=== PATIENT | female | born 1995 | race Caucasian/White ===

== ENCOUNTER → 2020-06-05 | Outpatient (CLI) | payer OTHER ==
[~2020-06-05] MED LIST: KAITLIB FE CHE1 EACH PO; OXYCODONE-ACET1 EACH PO; PERCOCET PO; PROMS25 WY RECTAL
== END ==
LOC: LAB 08:00
PROVIDERS: ATTEND Anesthesiology
DX: Z01.812 Encounter for preprocedural laboratory examination (principal); Z11.59 Encounter for screening for other viral diseases

== ENCOUNTER 2020-06-14 21:53 | Observation (INO) | payer OTHER ==
[~2020-06-14] VITALS: Ht 162.6 cm; Wt 61.2 kg
[2020-06-14 21:56] VITALS: BP 141/88
[2020-06-14] MEDS ORDERED: KAITLIB FE CHE1 EACH PO (22:02)
[2020-06-14] MEDS ORDERED: OXYCODONE-ACET1 EACH PO (22:02)
[2020-06-14 22:37] LABS: ABSOLUTE NEUTROPHILS 9.6 thou/uL (1.4-8.2); BASOPHILS 0.4 % (0.0-2.0); EOSINOPHILS 0.4 % (0.0-3.0); HEMATOCRIT 39.8 % (37.0-47.0); HEMOGLOBIN 13.6 gm/dL (12.0-15.0); LYMPHOCYTES 11.5 % (24.0-44.0); MCH 30.4 pg (26.0-34.0); MCHC 34.2 g/dL (28.0-37.0); MCV 88.9 fL (80.0-100.0); PLATELET COUNT 302 thou/uL (150-400); POLYS 79.7 % (36.0-66.0); RBC 4.48 mil/uL (4.20-5.00); RDW 12.9 % (10.5-14.5); WBC 12.1 thou/uL (4.0-11.0)
[2020-06-14 22:51] LABS: PROTIME 10.3 Seconds (9.3-11.4)
[2020-06-14] MEDS ORDERED: PROMS25 WY RECTAL (23:11)
[2020-06-14] MEDS ORDERED: PERCOCET PO (23:12)
[2020-06-15 01:57] VITALS: BP 131/81
--- NOTE | 2020-06-15 02:41 | NUR ---
PT TO UNIT AROUND 0100. PT IS A&OX4, UP AD HEATHER. THIS NURSE WALKED WITH HER TO THE BATHROOM THE FIRST TIME AND PT WAS STEADY ON FEET. IV MORPHINE GIVEN FOR PAIN. FLUIDS INFUSING PER ORDER. VSS. ASSESSMENT COMPLETED. TOLERATING LIQUIDS WELL. NO REPORTS OF BLEEDING, BACK OF THE THROAT SHOWS POSITIVE SIGNS OF HEALING. WILL CONTINUE TO MONITOR THROUGHOUT THE NIGHT. PT IS JUST OBSERVATION STATUS AND PLANS TO GO HOME IN AM.
[2020-06-15 03:40] VITALS: BP 133/67
[2020-06-15 05:56] LABS: HEMOGLOBIN 12.8 gm/dL (12.0-15.0); MCH 30.2 pg (26.0-34.0); MCHC 33.8 g/dL (28.0-37.0); MCV 89.1 fL (80.0-100.0); RBC 4.26 mil/uL (4.20-5.00); RDW 12.7 % (10.5-14.5); WBC 11.3 thou/uL (4.0-11.0)
[2020-06-15 07:56] VITALS: BP 116/64
--- NOTE | 2020-06-15 09:53 | NUR ---
PT IS AOX4, VSS, PAIN CONTROLLED WITH IV MORPHINE. PT RECEIVED IV ANTIBITIC. NURSE CALLED DR. AMBROCIO AND WAS TOLD TO DISCHARGE PT. SHE WAS ON OBSERVATION STATUS ONLY. PT VERBALIZED UNDERSTANDING AND WILL FOLLOW UP WITH DR. AMBROCIO SCHEDULED. MOM WILL TRANSPORT PT HOME BY CAR.
--- NOTE | 2020-06-15 13:15 | H ---
[facility] [place] [address] HISTORY AND PHYSICAL Name: ADORE ELLIS Room #: 441-P [facility].Bhupendra#: [id number] Admission: 06/14/20 Attend Phys: Win Galindo MD Discharge: 06/15/20 Date of : 89 Report #: [id number] THIS REPORT FOR: cc: PAMELA - No family physician/PCP FAM - No family physician/PCP Win Galindo MD ~ CC: [facility] physician/PCP Win Carr M.D. DATE OF SERVICE: 06/14/2020 SURGEON: Win Galindo MD REASON FOR CONSULTATION: Post-tonsillectomy hemorrhage. HISTORY OF PRESENT ILLNESS: The patient is a 24-year-old female admitted via the Emergency Department tonight after the onset of bleeding beginning around 7:00 this evening. The patient's father had called me at around 07:37 and I had instructed them on the use of cold water lavages to the pharynx and told them to proceed to the Emergency Room if this continued to bleed. He called back at 9:28 p.m., stating it was still bleeding and I directed them to the Emergency Department. The patient's history is significant for tonsillectomy done by my partner, Dr. Carr, on 06/08/2020 at [facility]. The patient seen in the Emergency Department with a large clot still oozing in the right tonsillar fossa. PAST MEDICAL HISTORY: Significant for chronic tonsillitis, status post tonsillectomy and adenoidectomy 06/08/2020, third molar extraction. She is otherwise healthy, vigorous 24-year-old. MEDICATIONS: Include oxycodone and control pills. ALLERGIES: None. REVIEW OF SYSTEMS: The patient is complaining of pain in her throat in addition to feeling somewhat nauseated from the bleeding. Other 12-point review of systems is negative. SOCIAL HISTORY: She is here with her mother. She is a nonsmoker, drinks alcohol occasionally. PHYSICAL EXAMINATION: GENERAL: Shows a well-developed 24-year-old seen in the Emergency Department, respiration of 16, pulse of 97. VITAL SIGNS: Blood pressure 141/88, pulse of 100. [facility] [address] [place] [address] HISTORY AND PHYSICAL Name: ADORE ELLIS [facility] [id number] Admission: 06/14/20 Attend Phys: Win Galindo MD Discharge: 06/15/20 Date of : [birth year] Report #: [id number] HEENT: She is normocephalic. Pupils are equal, round, reactive to light. Otologic exam normal tympanic membrane. Nasal exam, deviated septum is minimal to the right. Oral cavity shows a large clot in the right tonsillar fossa with some active oozing. NECK: Supple. Trachea is in the midline. NEUROLOGIC: Cranial nerves 2-12 are otherwise intact. Motor, sensory and cerebellar exams normal. LUNGS: Clear. CBC shows a white count of 12,100 with a hemoglobin of 13.6. PT and PTT are pending. ASSESSMENT: Post-tonsillectomy hemorrhage postoperative day #5 status post tonsillectomy by my partner, Dr. Carr, on 06/08/2020. PLAN: I will plan to return the patient to the operating room for control of post-tonsillectomy hemorrhage. I have discussed the planned procedure, indications, alternatives, benefits and potential risks with the patient and her mother who understands the need to proceed. <ELECTRONICALLY SIGNED> By: Win Galindo MD 06/15/20 1315 [id number] iWn Galindo MD /nt
--- NOTE | 2020-06-15 13:15 | O ---
[facility] [place] [address] OPERATIVE REPORT Name: ADORE ELLIS Room #: 441-P [facility] Josue Lowe#: [id number] Admission: 06/14/20 Attend Phys: Win Galindo MD Discharge: 06/15/20 Date of : [birth year] Report #: [id number] THIS REPORT FOR: cc: PAMELA - No family physician/PCP FAM - No family physician/PCP Win Galindo MD ~ CC: [facility] physician/PCP Win Carr DATE OF SERVICE: 06/14/2020 SURGEON: Win Galindo M.D. PREOPERATIVE DIAGNOSIS: Post-tonsillectomy hemorrhage, postoperative day #5. POSTOPERATIVE DIAGNOSIS: Post-tonsillectomy hemorrhage, postoperative day #5. OPERATION PERFORMED: Control post-tonsillectomy hemorrhage with secondary surgical intervention. INDICATIONS: The patient is a 24-year-old female, postoperative day #5 after tonsillectomy and adenoidectomy by my partner, Dr. Carr, on 06/08 at [facility]. The patient began bleeding tonight and then this was nonresponsive to ice water lavages. In light of the above, she was recommended to proceed to the Emergency Room. This confirmed a large clot with active bleeding in the right fossa. The patient was brought to the operating room for control. DESCRIPTION OF PROCEDURE: The patient was brought to the operating room and placed supine on the operating table. After adequate general anesthesia was achieved via endotracheal intubation, she was turned 90 degrees. A shoulder roll was placed and neck was extended. She was then prepped and draped for control of tonsillectomy hemorrhage. McIvor mouth gag was introduced. Tongue was retracted and the patient suspended from the Levy stand. The soft palate was palpated. There was no submucous cleft. There was a large clot in the right fossa consisting of at least 30-40 mL of coagulated blood. This was removed with a tonsil hemostat in pieces. This extended down to the pharynx and piriform sinus on the right. Once the clot was removed, there was active bleeding from an arterial bleed in the mid portion of the right tonsillar fossa. This was controlled with suction cauterization. The smaller bleeding in the superior pole and another third smaller bleeding in the inferior pole also cauterized. The Nasopharynx was examined. There was some eschar present, which was removed. Adenoid area appeared to be healing fine. There was no bleeding from the left. The oropharynx was then irrigated and Nasopharynx was irrigated and suctioned. Once this was completed, an 18-Divehi nasogastric tube was [address] [address] OPERATIVE REPORT Name: CALEBADORE MONTEZ Room #: 441-P [facility] Josue M.RBhupendra#: [id number] Admission: 06/14/20 Attend Phys: Win Galindo MD Discharge: 06/15/20 Date of : 89 Report #: [id number] placed into the stomach and the bloody stomach contents were removed. There was again about 150 mL of blood in the stomach that was removed as well. The patient was then discharged back to Anesthesia, awaken without difficulty and returned to recovery in good condition. Sponge and needle counts were correct. There were no complications. Blood loss was about 20 mL for the procedure. I would suspect the patient had blood about 200 mL. She will be watched overnight for monitoring, presuming that she does well, discharged to home in the morning. Written and verbal discharge instructions and emergency precautions have been given to her mother. DISCHARGE MEDICATIONS: Include Percocet 5/325 one to two q. 4-6 hours p.r.n. She is instructed on light activity and a soft diet. She will follow up with Dr. Carr in 1 week. <ELECTRONICALLY SIGNED> By: Win Galindo MD 06/15/20 1315 [id number] Win Galindo MD /nt
== END 2020-06-15 11:37 | disposition home or self-care (01) ==
LOC: ER 21:53 → EROBS 22:29 → 4S 23:33
PROVIDERS: Emergency Medicine; ADMIT Otolaryngology Plastic Surgery within the Head & Neck; ATTEND Otolaryngology Plastic Surgery within the Head & Neck
DX: K91.840 Postprocedural hemorrhage of a digestive system organ or structure following a digestive system procedure (principal)
CPT/HCPCS: 50101; 62110; 62900